=== PATIENT | male | born 2000 | race Hispanic/Latino ===

== ENCOUNTER 2021-01-14 14:56 | Emergency (ER) | payer SELFPAY ==
--- NOTE | ~2021-01-14 | XR_ITS ---
EXAMINATION: XR chest 2V EXAM DATE: 01/14/2021 16:42 INDICATION: Chest tightness in sternum for 3 weeks, low middle chest pain. TECHNIQUE: Frontal and lateral projections of the chest obtained and reviewed. There is no prior ariana dy for comparison. FINDINGS: There is 5 mm nodular density left midlung zone, probably a granuloma given that it is well visualized at this size, and patient's young age. It also appears somewhat triangular in shape. The lungs are otherwise clear. There are no pleural effusions. The cardiomediastinal silhouette is with in normal limits. There is no pneumothorax suspected. The bones and soft tissues are unremarkable. IMPRESSION: No acute cardiopulmonary findings. Reviewed, dictated and finalized at location A.
--- NOTE | 2021-01-14 15:58 | ECG_ITS ---
Measurements Intervals [place] Rate: 64 P: 53 CO: 136 QRS: 79 QRSD: 83 T: 58 QT: 351 QTc: 365 Interpretive Statements SINUS RHYTHM ST ELEVATION IN ANT/INF LEADS, PROBABLY EARLY REPOLARIZATION BORDERLINE ECG Electronically Signed On 01-14-2021 16:13:07 CDT by Felton Elizabeth D.O.
[2021-01-14 16:00] VITALS: BP 135/71; PULSE 82; RESP 18; TEMP 36.7; O2SAT 98
[2021-01-14 16:17] LABS: Basophils Percent Auto 0.4 % (0.2-1.2); Eosinophils Absolute Auto 0.1 K/mm3 (0-0.3); Eosinophils Percent Auto 1.8 % (0-4.4); Hematocrit 45.3 % (42.0-52.0); Hemoglobin 14.9 g/dL (14.0-18.0); Immature Granulocyte Absolute 0.02 K/mm3 (0.00-0.031); Immature Granulocyte Percent A 0.3 % (0-0.5); Lymphocytes Absolute Auto 1.55 K/mm3 (0.9-3.2); Lymphocytes Percent Auto 22.7 % (18.3-44.2); Mean Corpuscular HGB Conc 32.9 g/dl (32-36); Mean Corpuscular Hemoglobin 29.2 pg (26-34); Mean Corpuscular Volume 88.6 fl (80-100); Mean Platelet Volume 11.3 fl (7.4-10.4); Monocytes Absolute Auto 0.6 K/mm3 (0.1-0.6); Neutrophils Absolute Auto 4.6 K/mm3 (1.3-6.7); Neutrophils Percent Auto 66.8 % (45.5-73.1); Platelet Count Result 254 k/mm3 (150-375); Red Blood Count 5.11 M/mm3 (4.6-6.20); Red Cell Distribution Width 13.2 % (11.5-14.5); White Blood Count 6.8 K/mm3 (4.5-10.0)
[2021-01-14 16:29] LABS: Prothrombin Time 13.7 Seconds (11.1-14.7)
[2021-01-14 16:30] LABS: Partial Thromboplastin Time 25.5 SECONDS (22.3-36.8)
[2021-01-14 16:33] LABS: Anion Gap 7 mmol/L (8-16); Blood Urea Nitrogen 21 mg/dL (9-20); Calcium 9.8 mg/dL (8.4-10.2); Carbon Dioxide 30 mmol/L (22-30); Chloride 105 mmol/L (98-107); Estimated CRCL calculation 94 ml/min; Estimated Glomerular Filt Rate > 60; Glucose 98 mg/dL (75-110); Potassium 3.9 mmol/L (3.4-5.0); Sodium 142 mmol/L (137-145)
[2021-01-14 16:45] LABS: Troponin I < 0.012 ng/mL (0.000-0.034)
[2021-01-14 19:30] VITALS: BP 131/71; PULSE 68; RESP 17; O2SAT 99
--- NOTE | 2021-01-14 19:35 | ED.CHESTPAIN ---
HPI - Chest Pain General Chief Complaint: Chest Pain Stated Complaint: chest pains/tightness x few weeks Time Seen by Provider: 01/14/21 19:29 Source: patient Mode of arrival: ambulatory Limitations: no limitations History of Present Illness HPI narrative: 20-year-old with no major medical problems here with complaints of chest tightness on and off for 1 month. Patient states that he feels tight in his lower part of his chest more at the sternal area. He also complains of mild shortness of breath which is been ongoing. Patient states that he has a history of seasonal allergies and has been sneezing a lot. No history of any nausea or diaphoresis with the chest tightness. MD complaint: chest pain Onset (ago): week(s) (4) Timing of current episode: episodic Prior episodes: No Pain location: substernal Pain radiation: none Quality: tightness Relieving factors: nothing Exacerbating factors: nothing Related Data Allergies Allergy/AdvReac Type Severity Reaction Status Date / Time No Known Allergies Allergy Verified 01/14/21 19:42 Review of Systems Review of Systems: All systems reviewed & are unremarkable except as noted in HPI and below Constitutional: Constitutional: Reports no additional constitutional complaints Eyes: Eyes: Reports no additional eye complaints ENT: Reports system reviewed and no additional complaints, except as documented Cardiovascular: Cardiovascular: Reports as per HPI Respiratory: Respiratory: Reports as per HPI Gastrointestinal: Gastrointestinal: Reports no additional gastrointestinal complaints Musculoskeletal: Musculoskeletal: Reports no additional musculoskeletal complaints Neurologic: Reports system reviewed and no additional complaints, except as documented PMFSH Social History Social History Gender identity (if verbalized by the patient): Male Exam Narrative: Exam Narrative: GENERAL: Well-appearing, well-nourished, and in no acute distress. HEAD: Normocephalic, atraumatic. EYES: PERRLA and EOMI.. NECK: Supple. CHEST: Clear to auscultation. No respiratory distress. HEART: Regular rate and rhythm. No murmur heard. Normal peripheral pulses. ABDOMEN: Soft, nontender, nondistended, normal active bowel sounds. EXTREMITIES: Normal range of motion. No edema. SKIN: Warm, dry, no rash. NEURO: No focal deficits. Alert and oriented x3. PSYCH: Normal mood and affect. Course Course Emergency Course: Patient presently has no chest pain. Patient states that he was at work and had pain wanted to get it checked out. Patient mentions since that he recently moved to this area had no previous history of seasonal allergies. I discussed labs, chest x-ray findings with the patient. With the symptoms and suspect his cause of his chest reactive airway disease secondary to allergies. Advised him to use the inhalers also recommended him to follow-up with the primary doctor. Vital Signs Vital signs: Vital Signs Temperature 36.7 C 01/14/21 16:00 Pulse Rate 82 01/14/21 16:00 Respiratory Rate 18 01/14/21 16:00 Blood Pressure 135/71 01/14/21 16:00 Pulse Oximetry 98 01/14/21 16:00 Temperature 36.7 C 01/14/21 16:00 Pulse Rate 68 01/14/21 19:30 Respiratory Rate 17 01/14/21 19:30 Blood Pressure 131/71 01/14/21 19:30 Pulse Oximetry 99 01/14/21 19:30 MDM - Chest Pain Lab Data Result diagrams: 01/14/21 16:04 01/14/21 16:04 Labs: Lab Results 01/14/21 01/14/21 01/14/21 Range/Units 16:04 16:04 16:04 WBC 6.8 (4.5-10.0) K/mm3 RBC 5.11 (4.6-6.20) M/mm3 Hgb 14.9 (14.0-18.0) g/dL Hct 45.3 (42.0-52.0) % MCV 88.6 (80-100) fl MCH 29.2 (26-34) pg MCHC 32.9 (32-36) g/dl RDW 13.2 (11.5-14.5) % Plt Count 254 (150-375) k/mm3 MPV 11.3 H (7.4-10.4) fl Immature Gran % (Auto) 0.3 (0-0.5) % Neut % (Auto) 66.8 (45.5-73.1) % Lymph % (A
== END 2021-01-14 19:57 | disposition home or self-care (01) ==
PROVIDERS: Emergency Medicine; Emergency Provider Family Medicine
DX: R07.89 Other chest pain (principal); R94.31 Abnormal electrocardiogram [ECG] [EKG]
CPT/HCPCS: 36415; 71046; 80048; 84484; 85025; 85610; 85730; 93005; 99284

== ENCOUNTER 2021-03-17 08:10 | Day surgery (SDC) | payer SELFPAY ==
[2021-03-17] VITALS (10 sets, daily range): BP systolic 101–140; BP diastolic 72–82; PULSE 61–85; RESP 14–20; TEMP 36.8–37.2; O2SAT 100
--- NOTE | ~2021-03-17 | CT_ITS ---
EXAMINATION: CT abdomen pelvis w con DATE: 03/17/2021 09:23 INDICATION: Right lower quadrant abdominal pain. TECHNIQUE: Computed tomography (CT) of the abdomen and pelvis was performed with 100 mL Omnipaque 350 intravenous contrast. Automated exposure control and iterative reconstruction technique were employe d. The dose-length product was 403.77 mGy-cm. COMPARISON: None. FINDINGS: The visualized portions of the lung bases are clear without pneumonia or pleural effusion. The heart size is normal. No pericardial effusion. The liver, gallbladder, spleen, pancreas, adrenal glands, and left kidney are normal. There is a 6 mm cyst in right kidney. The appendix measures up to 8 mm in diameter. There is fluid and gas in the appendiceal lumen. There is fat stranding around the appendix. There are no pathologically enlarged lymph nodes. There is no free intraperitoneal fluid. The bones are unremarkable. IMPRESSION: 1. Acute appendicitis. I called this result to Dr. Klein. Reviewed, dictated and finalized at location A.
[2021-03-17 08:42] LABS: Basophils Percent Auto 0.1 % (0.2-1.2); Eosinophils Percent Auto 0.2 % (0-4.4); Hematocrit 45.6 % (42.0-52.0); Hemoglobin 15.1 g/dL (14.0-18.0); Immature Granulocyte Absolute 0.11 K/mm3 (0.00-0.031); Immature Granulocyte Percent A 0.7 % (0-0.5); Lymphocytes Absolute Auto 1.44 K/mm3 (0.9-3.2); Lymphocytes Percent Auto 8.6 % (18.3-44.2); Mean Corpuscular HGB Conc 33.1 g/dl (32-36); Mean Corpuscular Hemoglobin 29.6 pg (26-34); Mean Corpuscular Volume 89.4 fl (80-100); Monocytes Absolute Auto 1.8 K/mm3 (0.1-0.6); Monocytes Percent Auto 10.6 % (2.6-8.5); Neutrophils Absolute Auto 13.4 K/mm3 (1.3-6.7); Neutrophils Percent Auto 79.8 % (45.5-73.1); Platelet Count Result 241 k/mm3 (150-375); White Blood Count 16.8 K/mm3 (4.5-10.0)
[2021-03-17 08:44] LABS: Add Urine Microscopic? NO; Appearance Urine Clear (Clear); Bilirubin Urine Negative (Negative); Blood Urine Negative (Negative); Color Urine Yellow (Yellow); Glucose Urine UA Negative (Negative); Ketones Urine Negative (Negative); Leukocyte Esterase Ur Negative LEU/UL (Negative); Nitrate Urine Negative (Negative); Protein Urine Negative (Negative); Specific Grav Ur 1.015 (1.001-1.035); Urobilinogen Urine Negative mg/dL (<2.0)
--- NOTE | 2021-03-17 08:55 | ED.GENADULT ---
HPI - General Adult General Chief complaint: Abdominal Pain Stated complaint: abd pain Time Seen by Provider: 03/17/21 08:27 Source: patient Limitations: no limitations History of Present Illness HPI narrative: Patient is a 20 y/o male complaining abdominal pain since yesterday. His pain is mostly in right lower abdomen. He describes his pain as a constant pain and rates it as 6/10. There is no pain radiation. He has some nausea, but no vomiting. He states that he took Pepto Bismol which did not help. Related Data Allergies Allergy/AdvReac Type Severity Reaction Status Date / Time No Known Allergies Allergy Verified 03/17/21 08:24 Review of Systems Review of Systems: All systems reviewed & are unremarkable except as noted in HPI and below Constitutional: Constitutional: Denies chills, Denies fever(s), Denies headache(s) and Denies weakness Eyes: Eyes: Denies blurry vision ENT: Denies headache(s) and Denies neck pain Cardiovascular: Cardiovascular: Denies chest pain and Denies dyspnea Respiratory: Respiratory: Denies cough and Denies dyspnea Gastrointestinal: Gastrointestinal: Reports abdominal pain, Denies diarrhea, Reports nausea and Denies vomiting Genitourinary: Genitourinary: Denies hematuria and Denies dysuria Musculoskeletal: Musculoskeletal: Denies back pain and Denies neck pain Neurologic: Denies headache(s) and Denies weakness [facility] Surgical History Surgical History (Updated 03/17/21 @ 11:19 by Billy Mccray DO) S/P pyloromyotomy, follow-up exam Social History Social History (Updated 03/17/21 @ 11:20 by Billy Mccray DO) Smoking status: Never smoker Alcohol intake: current Alcohol use details: social Substance use type: does not use Gender identity (if verbalized by the patient): Male Exam Const: General: no acute distress and well developed Orientation/consciousness: oriented to person, oriented to place, oriented to time and patient oriented x3 HENMT: Head: normocephalic Ears: external ears normal General nose exam: Normal external nose present Eyes: General: appearance normal, both eyes and all related structures Conjunctivae: conjunctivae normal Neck: Neck: normal visual inspection and full ROM Chest: Chest palpation & inspection: normal inspection of the chest and no tenderness Resp: Effort & Inspection: normal respiratory effort Auscultation: clear to auscultation bilaterally Cardio: Rate: regular rate Rhythm: regular rhythm GI: GI Palp: Yes abdominal tenderness (RLQ) and Yes Soft to palpation Skin: General skin exam: normal color and turgor normal Neuro: General: oriented to person, oriented to place, oriented to time and patient oriented x3 Cognition (Neuro): normal cognition Extrem: General: normal to inspection, full ROM and no pedal edema Psych: Appearance: grossly normal Mental Status: mental status grossly normal Affect: normal affect Course Consultations Consultation #1: Discussed with Dr. Mccray, who states that he will plan surgery. Date: 03/17/21 Time: 10:02 Vital Signs Vital signs: Vital Signs Temperature 37.2 C 03/17/21 08:25 Pulse Rate 79 03/17/21 08:25 Respiratory Rate 20 03/17/21 08:25 Blood Pressure 116/74 03/17/21 08:25 Pulse Oximetry 100 03/17/21 08:25 Temperature 36.8 C 03/17/21 12:22 Pulse Rate 66 03/17/21 13:47 Respiratory Rate 18 03/17/21 13:47 Blood Pressure 129/77 03/17/21 13:47 Pulse Oximetry 100 03/17/21 13:40 Medical Decision Making Vital Signs Vital Signs: Vital Signs Temperature 37.2 C 03/17/21 08:25 Pulse Rate 79 03/17/21 08:25 Respiratory Rate 20 03/17/21 08:25 Blood Pressure 116/74 03/17/21 08:25 Pulse Oximetry 100 03/17/21 08:25 Temperature 36.8 C 03/17/21 12:22 Pulse Rate 66 03/17/21 13:47 Respiratory Rate 18 03/17/21 13:47 Blood Pressure 129/77 03/17/21 13:47 Pulse Oximetry 100 03/17/21 13:40 Lab Data Res
[2021-03-17 08:56] LABS: Alanine Aminotransferase 48 U/L (4-50); Albumin Level 5.2 g/dL (3.5-5.1); Alkaline Phosphatase 56 U/L (38-126); Anion Gap 13 mmol/L (8-16); Aspartate Amino Transferase 61 U/L (17-59); Bilirubin,Total 1.2 mg/dL (0.2-1.3); Blood Urea Nitrogen 13 mg/dL (9-20); Calcium 10.2 mg/dL (8.4-10.2); Carbon Dioxide 28 mmol/L (22-30); Chloride 98 mmol/L (98-107); Estimated CRCL calculation 82 ml/min; Estimated Glomerular Filt Rate > 60; Glucose 121 mg/dL (75-110); Lipase 58 U/L (23-300); Potassium 4.2 mmol/L (3.4-5.0); Sodium 139 mmol/L (137-145)
[2021-03-17] MEDS: KETOROLAC 30 MG/ML VIAL (*BKC) IV PUSH (09:44)
--- NOTE | 2021-03-17 10:22 | WPDANESEPP ---
Anes - Eval Pre Procedure Procedure: Laparoscopic Appendectomy Date/Time: 03/17/21 10:22 Pre Op Diagnosis: abd pain Patient Data Age: 20 Gender: M Height: 1.83 m Weight: 81 kg Last Vital Signs Temp 37.2 C 03/17/21 10:14 Pulse 79 03/17/21 08:25 Resp 20 03/17/21 08:25 BP 116/74 03/17/21 08:25 Pulse Ox 100 03/17/21 08:25 Allergies Allergy/AdvReac Type Severity Reaction Status Date / Time No Known Allergies Allergy Verified 03/17/21 08:24 Home Medications Medication Instructions Recorded Confirmed Type No Home Medications 03/17/21 03/17/21 History Laboratory Tests 03/17/21 03/17/21 03/17/21 08:23 08:23 08:23 WBC 16.8 K/mm3 H K/mm3 (4.5-10.0) RBC 5.10 M/mm3 M/mm3 (4.6-6.20) Hgb 15.1 g/dL g/dL (14.0-18.0) Hct 45.6 % % (42.0-52.0) MCV 89.4 fl fl (80-100) MCH 29.6 pg pg (26-34) MCHC 33.1 g/dl g/dl (32-36) RDW 13.0 % % (11.5-14.5) Plt Count 241 k/mm3 k/mm3 (150-375) MPV 11.0 fl H fl (7.4-10.4) Immature Gran % (Auto) 0.7 % H % (0-0.5) Neut % (Auto) 79.8 % H % (45.5-73.1) Lymph % (Auto) 8.6 % L % (18.3-44.2) Wilkinson % (Auto) 10.6 % H % (2.6-8.5) Eos % (Auto) 0.2 % % (0-4.4) Baso % (Auto) 0.1 % L % (0.2-1.2) Lymph # (Auto) 1.44 K/mm3 K/mm3 (0.9-3.2) Wilkinson # (Auto) 1.8 K/mm3 H K/mm3 (0.1-0.6) Eos # (Auto) 0.0 K/mm3 K/mm3 (0-0.3) Baso # (Auto) 0.0 K/mm3 K/mm3 (0.0-0.1) Abs Immat Gran (auto) 0.11 K/mm3 H K/mm3 (0.00-0.031) Absolute Neuts (auto) 13.4 K/mm3 H K/mm3 (1.3-6.7) Absolute Nucleated RBC 0.0 K/mm3 K/mm3 (0.0-0.012) Nucleated RBC % 0.0 % % (0.0-0.2) Sodium 139 mmol/L mmol/L (137-145) Potassium 4.2 mmol/L mmol/L (3.4-5.0) Chloride 98 mmol/L mmol/L (98-107) Carbon Dioxide 28 mmol/L mmol/L (22-30) Anion Gap 13 mmol/L mmol/L (8-16) BUN 13 mg/dL D mg/dL (9-20) Creatinine 1.40 mg/dL H mg/dL (0.7-1.3) Estim Creat Clear Calc 82 ml/min ml/min Estimated GFR > 60 (59 - ) Glucose 121 mg/dL H mg/dL (75-110) Calcium 10.2 mg/dL mg/dL (8.4-10.2) Total Bilirubin 1.2 mg/dL mg/dL (0.2-1.3) AST 61 U/L H U/L (17-59) ALT 48 U/L U/L (4-50) Alkaline Phosphatase 56 U/L U/L (38-126) Total Protein 9.0 g/dL H g/dL (6.3-8.2) Albumin 5.2 g/dL H g/dL (3.5-5.1) Lipase 58 U/L U/L (23-300) Urine Color Yellow (Yellow) Urine Appearance Clear (Clear) Urine pH 6.0 (5.0-9.0) Ur Specific [place] 1.015 (1.001-1.035) Urine Protein Negative mg/dL mg/dL (Negative) Urine Glucose (UA) Negative mg/dL mg/dL (Negative) Urine Ketones Negative mg/dL mg/dL (Negative) Ur Blood (Man) Negative (Negative) Urine Nitrate Negative (Negative) Urine Bilirubin Negative (Negative) Urine Urobilinogen Negative mg/dL mg/dL (<2.0) Leukocyte Esterase Rfl Negative JAIME/UL JAIME/UL (Negative) Patient hx anesthesia problems: none Family hx anesthesia problems: none [facility] Social History Social History Gender identity (if verbalized by the patient): Male Comments MJ use Exam Day of Procedure 03/17/21 10:22 Patient weight: normal Heart: regular rate and rhythm Lungs: normal air movement Airway: Mallampati scale class II Neurological: alert and oriented Other findings: sip water 0800
[2021-03-17] MEDS: MORPHINE SULFATE (*CRX) 4 MG/ML INJ IV PUSH (10:29)
--- NOTE | 2021-03-17 11:06 | P.PNAN_ITS ---
Anes - Eval Final PreProcedure Day of Procedure 03/17/21 11:06 Patient weight: normal Heart: regular rate and rhythm Lungs: clear to auscultation Airway: Mallampati scale class II Neurological: alert and oriented Last oral intake: >/= 8 hours ASA classification: II Emergent: no Anesthetic plan: proceed Anesthesia type and monitoring: general ETT and standard monitoring Informed Consent: The patient's anesthetic plan and its attendant risks and be nefits were discussed with the patient/family/POA. Questions were solicited and answers provided to the satisfaction of the patient/family/POA.
--- NOTE | 2021-03-17 11:16 | WPDHPUPDATE1 ---
History and Physical Update Update Date/Time: 03/17/21 11:16 History and Physical has been reviewed, including an updated exam of the patient. There are NO changes in the patient's condition. Risks, benefits, and alternatives have been discussed and questions answered. Patient agrees to proceed with procedure.
--- NOTE | 2021-03-17 11:16 | PM.IMHP ---
H&P: HPI History of Present Illness Date/Time: 03/17/21 11:16 Chief Complaint: Right lower quadrant pain Narrative: this is a 20-year-old man who presented to the emergency department this morning with right lower quadrant pain that started yesterday. He describes pain in his central abdomen initially and felt nauseated and felt like if he could throw up he would feel better but did not. He also felt like he needed to have a bowel movement but it hurt to strain. Pain eventually localized to the right lower quadrant. He has never experienced anything like this before. CT in the emergency department showed evidence of acute appendicitis. Review of Systems Review of Systems: All systems reviewed & are unremarkable except as noted in HPI and below Eyes: Eyes: Denies change in vision ENT: Denies hearing loss, Denies neck pain and Denies sore throat Cardiovascular: Cardiovascular: Denies chest pain and Denies dyspnea Respiratory: Respiratory: Denies cough, Denies dyspnea and Denies wheezing Genitourinary: Genitourinary: Denies hematuria and Denies dysuria Musculoskeletal: Musculoskeletal: Denies arthralgias, Denies joint swelling and Denies neck pain Allergic/Immunologic: Allergic/Immunologic: Denies wheezing [facility] Surgical History Surgical History (Updated 03/17/21 @ 11:19 by Billy Mccray DO) S/P pyloromyotomy, follow-up exam Social History Social History (Updated 03/17/21 @ 11:20 by Billy Mccray DO) Smoking status: Never smoker Alcohol intake: current Alcohol use details: social Substance use type: does not use Gender identity (if verbalized by the patient): Male Meds Home Medications and Allergies Home Medications Medication Instructions Recorded Confirmed Type No Home Medications 03/17/21 03/17/21 History Allergies Allergy/AdvReac Type Severity Reaction Status Date / Time No Known Allergies Allergy Verified 03/17/21 08:24 Vital Signs Vital Signs - 24 hr 03/17/21 08:25 03/17/21 10:14 03/17/21 10:30 Temperature 37.2 C 37.2 C Pulse Rate 79 85 Respiratory Rate 20 18 Blood Pressure 116/74 101/76 Pulse Oximetry 100 100 Exam Const: General: alert; No acute distress Orientation/consciousness: patient oriented x3 Limitations: no limitations HENMT: Head: normocephalic and atraumatic Ears: hearing grossly normal bilaterally General nose exam: Normal external nose present and Normal nares present Mouth: Yes Normal oral and palatal mucosa present and Yes moist mucous membranes Eyes: General: appearance normal, both eyes and all related structures Conjunctivae: conjunctivae normal Sclera: sclerae normal Pupils: Equal, round and reactive pupils present EOM: EOMs intact bilaterally Neck: Neck: normal visual inspection, full ROM, no lymphadenopathy, supple and no JVD Lymphatic: no lymphadenopathy noted Chest: Chest palpation & inspection: normal inspection of the chest Resp: Effort & Inspection: normal respiratory effort and able to speak in complete sentences Auscultation: clear to auscultation bilaterally Percussion: percussion normal Cardio: Jugular venous distension: no JVD Rate: regular rate Rhythm: regular rhythm Heart sounds: S1 normal heart sound present and S2 normal heart sound present Peripheral pulses: Peripheral pulses 2+ throughout GI: Inspection: normal to inspection and non-distended GI Palp: Yes Soft to palpation, Yes Tenderness to palpation present (GI) ( Right lower quadrant), No Guarding due to palpation present (GI), No Hernia present and No Rebound tenderness present Percussion: Yes normal to percussion Auscultation: normal bowel sounds : General: Yes no CVA tenderness Back/Spine/Pelvis: Back: no CVA tenderness Skin: General skin exam: normal color and dry skin Neuro: General: patient oriented x3, gait normal, moves all extremities, no focal motor deficits and CN's II-XI intact bilaterally Cranial nerves: Yes Equal
[2021-03-17] MEDS: BUPIVACAINE/EPINEPHRINE 0.5% 30 ML VIAL INFILTRATE (12:09)
--- NOTE | 2021-03-17 12:10 | W.PM.PROC2 ---
Procedure Note - Detailed Date of Procedure 03/17/21 Pre-op Diagnosis acute appendicitis Post-op Diagnosis same Procedure Performed Laparoscopic appendectomy Surgeon Billy Mccray, DO Anesthesia general and local (0.5% bupivacaine with epinephrine) Indications this is a 20-year-old man who presented to the emergency department this morning with right lower quadrant pain that started yesterday. Workup in the emergency department showed evidence of an elevated white blood count, tenderness in the right lower quadrant, and CT evidence of acute appendicitis. Decision was made to proceed with laparoscopic appendectomy. Findings Laparoscopic appendectomy was performed. The patient's appendix appeared slightly dilated and inflamed. There was no evidence of perforation or abscess. The remainder of the abdomen appeared grossly normal and he had minimal signs of scarring from his pyloromyotomy as an infant. The appendix was removed and sent to the lab for pathology. Description of Procedure Procedure as well as risks, benefits, and alternatives were explained to the patient. The patient agreed to proceed. Written consent was obtained and placed in chart prior to procedure. The patient was brought back to surgical suite. He was placed supine on operating table. Time-out was done to confirm the patient and procedure. The patient was then intubated by the Anesthesia Department. his abdomen was prepped and draped in sterile fashion using chlorhexidine prep. A 12 mm incision was made at the inferior portion of the umbilicus. Blunt dissection was carried out down to the linea alba. The linea alba was then incised using a 15 blade scalpel. Then bluntly entered into the peritoneal cavity. A 12 mm trocar was then inserted, and carbon dioxide insufflation was used to create a pneumoperitoneum. The camera was inserted and the abdomen was inspected. No immediate abnormalities were identified. The patient was then placed in slight Trendelenburg position and rotated to the left. A 5 mm incision was made in the suprapubic region in midline and a 5 mm trocar was inserted under direct visualization. A 5 mm incision was made in the left lower quadrant and a 5 mm trocar was inserted under direct visualization. The right lower quadrant was carefully inspected. The cecum was identified and then this was traced back to the appendix. The appendix was identified and grasped at the mesoappendix and lifted anteriorly. Careful blunt dissection was carried out at the base of the appendix through the mesoappendix using a [place] grasper. An Endo-STEVE 45 mm blue load stapler was then advanced across the base of the appendix and clamped and fired. A white reload was then clamped across the mesoappendix and fired. This freed up our appendix completely. It was then placed in an EndoCatch bag and removed through the umbilical port. The staple lines were then inspected. Hemostasis appeared adequate and the staple lines appeared secure. The area was then irrigated with sterile saline. The pelvis was then carefully inspected and irrigated with sterile saline as well and the remainder of the abdomen was carefully inspected. The patient was then flattened out in bed. One final inspection was made around the abdominal cavity and no other abnormalities were seen. The ports were then removed under direct visualization. The camera was removed and the pneumoperitoneum was released. The fascia of the umbilical incision was reapproximated using an 0 Vicryl [id number] suture. 0.5% bupivacaine with epinephrine was infiltrated locally around each of the incisions. The skin of the incisions was then approximated using 4-0 Monocryl subcuticular suture and Exofin glue was applied on top. The patient was then awakened from anesthesia, extubated, and transferred to Recovery. Estimated Blood Loss 5 Pathology yes (Appendix) Complications No immediate complications Condition stabl
[2021-03-17] MEDS: LACTATED RINGERS 1,000 ML 30 ML IV CONT (12:22)
== END 2021-03-17 13:50 | disposition home or self-care (01) ==
LOC: ANHED 08:39 → ANHSURGERY 10:50
PROVIDERS: Emergency Provider Emergency Medicine; Visit Provider Surgery
PROC: 0DTJ4ZZ Resection of Appendix, Percutaneous Endoscopic Approach (ICD-10-PCS; CPT 44970; principal; 2021-03-17 11:00)
DX: K35.32 Acute appendicitis with perforation, localized peritonitis, and gangrene, without abscess (principal); F12.90 Cannabis use, unspecified, uncomplicated
CPT/HCPCS: 44970; 36415; 74177; 80053; 81003; 83690; 85025; 88304; 96365; 96375; 99285; J0330; J1100; J1885; J2250; J2270; J2405; J2543; J2704; J7030; J7120; Q9967